=== PATIENT | male | born 1980 | race Caucasian/White ===

== ENCOUNTER 2016-09-03 09:26 | Emergency (ER) | payer SELFPAY ==
[~2016-09-03] VITALS: Ht 167.6 cm; Wt 102.1 kg
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
[2016-09-03] MEDS ORDERED: diphenhydrAMINE HCL 25 MG CAPSULE ONE (09:36)
[2016-09-03] MEDS ORDERED: ACETAMINOPHEN ES 500 MG TABLET ONE (09:36)
--- NOTE | 2016-09-03 09:45 | NUR ---
PT TAKEN TO XRAY.
[2016-09-03] MEDS ORDERED: ACETAMINOPHEN ES 500 MG TABLET PO ONE (10:00)
[2016-09-03] MEDS ORDERED: diphenhydrAMINE HCL 25 MG CAPSULE PO ONE (10:00)
--- NOTE | 2016-09-03 10:15 | NUR ---
DPatient discharged to home in stable condition. Written and verbal after care instructions given. Patient verbalizes understanding of instruction.
[2016-09-03 10:22] VITALS: BP 104/72
== END 2016-09-03 10:22 | disposition home or self-care (01) ==
LOC: ER 09:27
DX: S29.011A Strain of muscle and tendon of front wall of thorax, initial encounter (principal); F17.200 Nicotine dependence, unspecified, uncomplicated; X58.XXXA Exposure to other specified factors, initial encounter; Y93.89 Activity, other specified; Y92.89 Other specified places as the place of occurrence of the external cause; Y99.8 Other external cause status
CPT/HCPCS: 71100; 93005; 99284; A4606; Q0163; Z7610